=== PATIENT | male | born 1935 | race Caucasian/White ===

== ENCOUNTER 2020-09-08 11:39 | Emergency (ER) | payer OTHER, SELFPAY ==
[~2020-09-08 11:39] MED LIST: BUFFERIN LOW DO81 M1 PO; HYDRALAZINE HYD10 M1 PO; LEVAQUIN750 MG PO; LISINOPRIL40 MG PO; METFORMIN1000 M1 PO; METOPROLOL TART25 M1 PO; NOR10 PO; PRAVACHOL20 MG PO
[2020-09-08 13:33] VITALS: BP 152/62
== END 2020-09-08 13:33 | disposition home or self-care (01) ==
LOC: ED 11:39
DX: U07.1 COVID-19 (principal); I10 Essential (primary) hypertension; E11.9 Type 2 diabetes mellitus without complications
CPT/HCPCS: U0003